=== PATIENT | male | born 1970 | race Caucasian/White ===

== ENCOUNTER 2017-02-24 18:52 | Emergency (ER) | payer OTHER ==
[2017-02-24 19:00] VITALS: BP 145/94
[2017-02-24] MEDS ORDERED: HYDROcod/ACETAM 5/325 MG TABLET PO STA (19:37)
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
[2017-02-24] MEDS ORDERED: HYDROcod/ACETAM 5/325 MG TABLET ONE (19:45)
--- NOTE | 2017-02-24 20:27 | XRAY Preliminary Report ---
Exam: XR Thoracic Spine 2 View IMPRESSION: Normal thoracic spine radiography. [facility] SITE ID: [id number]
--- NOTE | 2017-02-24 20:27 | XRAY Preliminary Report ---
Exam: XR Shoulder 3 View LT IMPRESSION: Normal shoulder radiography. [facility] SITE ID: [id number]
--- NOTE | 2017-02-24 20:28 | XRAY Preliminary Report ---
Exam: XR Lumbar Spine 2 View IMPRESSION: Normal lumbar spine radiography. [facility] SITE ID: [id number]
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
== END 2017-02-24 20:53 | disposition home or self-care (01) ==
LOC: ED 18:52
DX: S23.3XXA Sprain of ligaments of thoracic spine, initial encounter (principal); S33.5XXA Sprain of ligaments of lumbar spine, initial encounter; S40.012A Contusion of left shoulder, initial encounter; V59.9XXA Occupant (driver) (passenger) of pick-up truck or van injured in unspecified traffic accident, initial encounter; R03.0 Elevated blood-pressure reading, without diagnosis of hypertension; F17.200 Nicotine dependence, unspecified, uncomplicated
CPT/HCPCS: 1040M; 72070; 72100; 73030; 99283; A9270